=== PATIENT | female | born 1990 | race American Indian/Alaskan Native ===

== ENCOUNTER 2019-04-04 17:02 | Emergency (ER) | payer MEDICAID ==
--- NOTE | 2019-04-04 20:36 | Emergency Department Report ---
ED Female HPI - General Chief complaint: Urogenital-Female Stated complaint: DISCHARGE/BV Time Seen by Provider: 04/04/19 19:27 Source: patient Mode of arrival: Ambulatory Limitations: No Limitations - History of Present Illness Initial comments: Ms. Schroeder is a 29-year-old -[place] female who presents for STD exposure. States her partner advises her to be treated for chlamydia. pt states white malodorous discharge ,and that she is 6 weeks . pt eduardo abdomial pain no n/v no vaginal bleeding or cramping, no back pain. will tx for sti, pt will follow up with OBGYN as she has no related problem today, pt denies dysuria, no frequency or urgency, pt is , P2, A0, States she just wants to be treated for STI. MD Complaint: vaginal discharge Onset/Timin -: week(s) Radiation: non-radiating Severity: mild Severity scale (0 -10): 0 Improves with: none Are you Now?: Yes Last Menstrual Period: 02/27/19 EDC: 12/04/19 Associated Symptoms: vaginal discharge. denies: vaginal bleeding, abdominal pain, nausea/vomiting, fever/chills, dysuria, hematuria - Related Data Sexually active: Yes : 2 Para: 2 A: 0 Previous Rx's Medication Instructions Recorded Last Taken Type metroNIDAZOLE [metroNIDAZOLE 0.75% 1 applicatio TP QHS 7 Days #45 04/04/19 Unknown Rx gel TOPICAL] gel..gram. Allergies Allergy/AdvReac Type Severity Reaction Status Date / Time ibuprofen Allergy Anaphylaxis Verified 04/04/19 17:06 ED Review of Systems ROS: Stated complaint: DISCHARGE/BV Other details as noted in HPI Constitutional: denies: chills, fever Eyes: denies: eye pain, eye discharge, vision change ENT: denies: ear pain, throat pain Respiratory: denies: cough, shortness of breath, wheezing Cardiovascular: denies: chest pain, palpitations Endocrine: no symptoms reported Gastrointestinal: denies: abdominal pain, nausea, diarrhea Genitourinary: discharge. denies: urgency, dysuria, frequency, hematuria, abnormal menses, dyspareunia Musculoskeletal: denies: back pain, joint swelling, arthralgia Skin: denies: rash, lesions Neurological: as per HPI Psychiatric: denies: anxiety, depression Hematological/Lymphatic: denies: easy bleeding, easy bruising ED Past Medical Hx - Past Medical History Previous Medical History?: No - Surgical History Past Surgical History?: No - Social History Smoking Status: Never Smoker Substance Use Type: None - Medications Home Medications: Home Medications Medication Instructions Recorded Confirmed Last Taken Type metroNIDAZOLE [metroNIDAZOLE 0.75% 1 applicatio TP QHS 7 Days #45 04/04/19 Unknown Rx gel TOPICAL] gel..gram. ED Physical Exam - General Limitations: No Limitations General appearance: alert, in no apparent distress - Head Head exam: Present: atraumatic, normocephalic - Eye Eye exam: Present: normal appearance - ENT ENT exam: Present: mucous membranes moist - Neck Neck exam: Present: normal inspection, full ROM. Absent: tenderness - Respiratory Respiratory exam: Present: normal lung sounds bilaterally. Absent: respiratory distress, wheezes, stridor, chest wall tenderness - Cardiovascular Cardiovascular Exam: Present: regular rate, normal rhythm, normal heart sounds. Absent: systolic murmur, diastolic murmur, rubs, gallop - GI/Abdominal GI/Abdominal exam: Present: soft, normal bowel sounds. Absent: distended, tenderness, guarding, rebound, rigid, bruit, hernia - Rectal Rectal exam: Present: deferred - External exam: Present: other (deferred by patient ) - Extremities Exam Extremities exam: Present: normal inspection - Back Exam Back exam: Present: normal inspection, full ROM. Absent: tenderness, CVA tenderness (R), CVA tenderness (L) - Neurological Exam Neurological exam: Present: alert, oriented X3, CN II-XII intact, normal gait - Psychiatric Psychiatric exam: Present: normal affect, normal mood - Skin Skin exam: Present: warm, dry, intact, normal color. Absent: rash ED Course Vital Signs 04/04/19 17:15 Temperature 98.2 F Pulse Rate 95 H Respiratory 18 Rate Blood Pressure 108/74 O2 Sat by Pulse 98 Oximetry ED Medical Decision Making - Lab Data Labs 04/04/19 20:24 Urine Color Yellow Urine Turbidity Cloudy Urine pH 6.0 Ur Specific [place] 1.015 Urine Protein <15 mg/dl Urine Glucose (UA) Neg Urine Ketones Neg Urine Blood Neg Urine Nitrite Neg Urine Bilirubin Neg Urine Urobilinogen 4.0 Ur Leukocyte Esterase Sm Urine WBC (Auto) 28.0 H Urine RBC (Auto) 2.0 U Epithel Cells (Auto) 10.0 Urine Mucus 2+ Urine HCG, Qual Positive A - Medical Decision Making this is a STI exposure, ua; pos uti, pt is , however no complication symptoms no vaginal bleeding no abdominal pain , no n/v, no fever or chills, no cramping no back pain. pt declines vaginal exam , advises she will follow up with OBGYN in 2 days. plan: tx for STI, dc to home with rx for flagyl vaginal gel., follow up with obgyn , [facility] department of hiv and hsv screening. pt verbalized agreement and understanding of discharge plan. Critical care attestation.: If time is entered above; I have spent that time in minutes in the direct care of this critically ill patient, excluding procedure time. ED Disposition Clinical Impression: STI (sexually transmitted infection) UTI (urinary tract infection) Qualifiers: Urinary tract infection type: acute cystitis Hematuria presence: without hematuria Qualified Code(s): N30.00 - Acute cystitis without hematuria Qualifiers: Weeks of gestation: less than 8 weeks Qualified Code(s): Z3A.01 - Less than 8 weeks gestation of Disposition: DC-01 TO HOME OR SELFCARE Is pt being admited?: No Does the pt Need Aspirin: No Condition: Stable Instructions: Urinary Tract Infection in Women (ED), Sexually Transmitted Diseases (ED), (ED) Prescriptions: metroNIDAZOLE [metroNIDAZOLE 0.75% gel TOPICAL] 1 applicatio TP QHS 7 Days #45 gel..gram. Referrals: JEMAL CASAS MD [Staff Physician] - 3-5 Days Forms: Work/School Release Form(ED)
[2019-04-04 20:39] LABS: Bilirubin,Urine NEG (Negative); Blood,Urine NEG (Negative); Color,Urine Yellow (Yellow); Mucus,Urine 2+ /HPF; Protein,Urine <15 mg/dL mg/dL (Negative)
[2019-04-04 20:40] LABS: HCG Qualitative,Urine Positive (Negative)
[2019-04-04] MEDS ORDERED: LIDOCAINE-MPF (1%) 10 MG/1 ML VIAL 5 ML INFILTRATI ONE (21:07)
[2019-04-04] MEDS ORDERED: AZITHROMYCIN 250 MG TAB PO ONE (21:07)
[2019-04-04 21:31] VITALS: BP 121/79
== END 2019-04-04 21:42 | disposition home or self-care (01) ==
LOC: ED 17:02
DX: O23.41 Unspecified infection of urinary tract in pregnancy, first trimester (principal); Z88.5 Allergy status to narcotic agent; Z20.2 Contact with and (suspected) exposure to infections with a predominantly sexual mode of transmission; Z3A.01 Less than 8 weeks gestation of pregnancy; Z79.899 Other long term (current) drug therapy
CPT/HCPCS: 81001; 81025; 87086; 96372; 99283; J0696